=== PATIENT | male | born 1980 | race Caucasian/White ===

== ENCOUNTER 2020-01-16 16:06 | Emergency (ER) | payer OTHER ==
[2020-01-16] MEDS ORDERED: KETOROLAC 30 MG/ML 1 ML VIAL IM STA (16:37)
[2020-01-16] MEDS ORDERED: ORPHENADRINE 30 MG/ML 2 ML VIAL IM STA (16:37)
--- NOTE | 2020-01-16 16:48 | ED ---
General Adult HPI - General Chief complaint: Back Pain/Injury Stated complaint: back/leg pain Time Seen by Provider: 01/16/20 16:24 Source: patient, RN notes reviewed Mode of arrival: ambulatory Limitations: no limitations - History of Present Illness Initial comments: 39-year-old male presents to the emergency department for a chief complaint of back pain 5 days. Patient has had mid low back pain since Friday. States at first it was painful just with turning and movement. However the past couple days pain has worsened. It is now radiating down his right leg. Patient denies weakness of the legs. Denies fevers or chills. Denies any numbness or tingling of the groin her buttock. Patient denies abdominal pain. Patient has no other complaints at this time including shortness of breath, chest pain, abdominal pain, nausea or vomiting, headache, or visual changes. - Related Data Previous Rx's Medication Instructions Recorded Cyclobenzaprine [Flexeril] 10 mg PO TID #14 tab 01/16/20 predniSONE 50 mg PO DAILY #5 tablet 01/16/20 Allergies Allergy/AdvReac Type Severity Reaction Status Date / Time No Known Allergies Allergy Verified 01/16/20 16:12 Review of Systems ROS Statement: Those systems with pertinent positive or pertinent negative responses have been documented in the HPI. ROS Other: All systems not noted in ROS Statement are negative. Past Medical History Past Medical History: No Reported History History of Any Multi-Drug Resistant Organisms: None Reported Past Surgical History: Appendectomy, Tonsillectomy Past Psychological History: No Psychological Hx Reported Smoking Status: Vaper Past Alcohol Use History: None Reported Past Drug Use History: Marijuana General Exam Limitations: no limitations General appearance: alert, in no apparent distress Head exam: Present: atraumatic, normocephalic, normal inspection Eye exam: Present: normal appearance, PERRL, EOMI. Absent: scleral icterus, conjunctival injection, periorbital swelling ENT exam: Present: normal exam, mucous membranes moist Neck exam: Present: normal inspection, full ROM. Absent: tenderness, meningismus, lymphadenopathy Respiratory exam: Present: normal lung sounds bilaterally. Absent: respiratory distress, wheezes, rales, rhonchi, stridor Cardiovascular Exam: Present: regular rate, normal rhythm, normal heart sounds. Absent: systolic murmur, diastolic murmur, rubs, gallop, clicks GI/Abdominal exam: Present: soft, normal bowel sounds. Absent: distended, tenderness, guarding, rebound, rigid Rectal exam: Present: normal inspection, normal rectal tone Extremities exam: Present: normal capillary refill (Capillary refill less than 2 seconds, DP pulse 2+ in the right lower extremity.), other (Sensation intact in the right lower extremity. Strength is 5 out of 5. Positive straight leg raise test. Patellar reflexes 2+ bilaterally). Absent: calf tenderness Back exam: Present: other (patient able to squat). Absent: full ROM (patient able to flex to 45 degrees), CVA tenderness (R), CVA tenderness (L), vertebral tenderness Course Vital Signs 01/16/20 01/16/20 16:10 18:04 Temperature 98.9 F Pulse Rate 97 71 Respiratory 16 16 Rate Blood Pressure 154/83 130/87 O2 Sat by Pulse 97 96 Oximetry Medical Decision Making - Medical Decision Making Patient is a 39-year-old male presenting to the emergency department for a chief complaint of back pain. He has had some mid low back pain since Friday. Patient states it now radiates on the right legs. Patient denies weakness of the legs, numbness or tingling in the groin or buttock. Denies fevers or c hills. Patient does state he has pain with urination because it hurts to stand did not position that is able to urinate if necessary. Denies loss of bowel function. On examination patient does have positive straight leg raise test on the right side. Neurovascularly intact in the right side. Strength 5 out of 5. No decrease of sensation of the groin or legs. Rectal tone is normal. Edith RED was present for exam. Patient was given pain medication here in the emergency department had significant improvement symptoms. He is ambulatory to the bathroom. Patient was evaluated by Dr. Serrano. We discussed return parameters. Discussed findings with orthopedics. Disposition Clinical Impression: Back pain Disposition: HOME SELF-CARE Condition: Good Instructions (If sedation given, give patient instructions): Acute Low Back Pain (ED) Additional Instructions: Take steroid as directed. Take Tylenol for pain. Do not take motrin on the days you are taking steroid. If pain is severe takeTylenol 3. Take muscle relaxer as needed. Do not drive or operate machinery while taking Tylenol 3 or muscle relaxer. Follow-up with orthopedics. Return to the emergency room for any worsening symptoms such as bladder or bowel changes, numbness or tingling of the lower extremities, weakness of the lower extremities, or fevers. Prescriptions: Cyclobenzaprine [Flexeril] 10 mg PO TID #14 tab predniSONE 50 mg PO DAILY #5 tablet Is patient prescribed a controlled substance at d/c from ED?: No Referrals: Ruby Ramos MD [REFERRING] - 1-2 days Kristopher Rodriguez DO [Medical Doctor] - 1-2 days Time of Disposition: 18:52
[2020-01-16] MEDS ORDERED: HYDROmorphone 0.5 MG/0.5 ML SYRINGE IM STA (17:50)
[2020-01-16] MEDS ORDERED: predniSONE 50 MG TAB PO STA (18:58)
[2020-01-16] MEDS ORDERED: ACET/COD 300 MG/30 MG STARTER PACK 6 TAB BTL PO STA (19:00)
[2020-01-16 19:22] VITALS: BP 139/94; PULSE 72; RESP 18; TEMP 98
== END 2020-01-16 19:22 | disposition home or self-care (01) ==
LOC: EC 16:06
DX: M54.5 Low back pain (principal); M79.604 Pain in right leg; X58.XXXA Exposure to other specified factors, initial encounter
CPT/HCPCS: 99283; 96372 ×3; J2360; J1885; J7512; J1170